=== PATIENT | female | born 1970 | race American Indian/Alaskan Native ===

== ENCOUNTER 2017-02-20 06:56 | Day surgery (SDC) | payer OTHER ==
[2017-02-20 07:24] VITALS: BMI 22.9
[2017-02-20 07:41] VITALS: O2SAT 100
[2017-02-20] MEDS ORDERED: Propofol 10 mg/ml Inj (20 ML) ONE (09:01)
[2017-02-20 09:42] VITALS: TEMP 97.8
[2017-02-20 10:12] VITALS: RESP 12
[2017-02-20 11:21] VITALS: BP 102/77; PULSE 77
== END 2017-02-20 11:10 | disposition home or self-care (01) ==
LOC: C.ENDO 06:56
PROVIDERS: ATTEND Internal Medicine
DX: Z12.11 Encounter for screening for malignant neoplasm of colon (principal); D12.5 Benign neoplasm of sigmoid colon; K57.30 Diverticulosis of large intestine without perforation or abscess without bleeding; K64.8 Other hemorrhoids; K29.70 Gastritis, unspecified, without bleeding; R63.4 Abnormal weight loss; E11.9 Type 2 diabetes mellitus without complications; Z98.51 Tubal ligation status; Z98.890 Other specified postprocedural states; Z79.84 Long term (current) use of oral hypoglycemic drugs; Z79.899 Other long term (current) drug therapy
CPT/HCPCS: 43239; 45380; 82948; 84703; 88305; J2704

== ENCOUNTER 2018-12-08 14:58 | Outpatient (CLI) | payer OTHER | END 2018-12-08 14:59 | disposition home or self-care (01) | LOC: C.MAMMO 14:58 | DX: Z12.31 Encounter for screening mammogram for malignant neoplasm of breast (principal) ==